=== PATIENT | female | born 1985 | race Asian ===

== ENCOUNTER → 2019-06-23 | Outpatient (REF) | payer OTHER | LOC: M SFHCLERA 10:11 | PROVIDERS: ATTEND Physician Assistant | DX: J02.9 Acute pharyngitis, unspecified (principal) ==

== ENCOUNTER → 2019-07-09 | Outpatient (CLI) | payer OTHER ==
--- NOTE | 2019-07-09 15:11 | REP ---
Two-view chest: 07/09/2019. Indication: New dyspnea. Cough. Comparison: None. Findings: The lungs are clear. There is no pleural effusion or pneumothorax. The cardiomediastinal silhouette is unremarkable. Impression: No acute cardiopulmonary process. Electronically Signed by Sergio Ray DO 07/09/2019 03:02 P
== END ==
LOC: M LRY 14:44
PROVIDERS: ATTEND Nurse Practitioner Family
DX: R05 Cough (principal)